=== PATIENT | male | born 1940 | race Caucasian/White ===

== ENCOUNTER 2016-09-19 04:22 | Emergency (ER) | payer BC, MEDICARE ==
[2016-09-19 05:32] LABS: Hematocrit 41 % (42-52); Hemoglobin 13.8 g/dl (14.0-18.0); Mean Corpuscular HGB Conc 34 g/dl (31-36); Mean Corpuscular Hemoglobin 29 pg (27-31); Mean Corpuscular Volume 85 fL (80-94); Mean Platelet Volume 8 um3 (7.4-10.4); Red Blood Count 4.76 10^6/ul (4.0-5.4); Red Cell Distribution Width 14 % (10.5-15)
[2016-09-19 05:37] LABS: Albumin 3.9 g/dL (3.2-5.2); BUN/Creatinine Ratio 14.6 (8-20); Calcium 9.4 mg/dL (8.6-10.3); EGFR African American 73.2 (>60); EGFR Non-African American 56.9 (>60); Globulin 2.9 g/dL (2-4); Potassium 3.8 mmol/L (3.5-5.0); Total Bilirubin 1.2 mg/dL (0.2-1.0); Total Protein 6.8 g/dL (6.4-8.9)
--- NOTE | 2016-09-19 05:51 | ED ---
Nichole Ruiz Erika, scribed for Gael Jama MD on 09/19/16 at 0457 . Hypertension - HPI Summary HPI Summary: Patient is a 76-year-old male presenting to the ED with a CC of high blood pressure. Patient reports 2 days of chills, throbbing headache, and an "odd sensation" in the posterior neck, which he associates with episodes of elevated blood pressure. Pt denies any SOB or chest pain. Pt states he took 2 HCTZ earlier to see if symptoms would improve, and that symptoms have now resolved. Pt took his blood pressure with a traveling monitor he has which stated his blood pressure was above 200 systolic, but he is unsure that this monitor was accurate because blood pressure was much lower when EMS arrived. EMS report a blood pressure of 158/78 at 04:00, and 127/80 at 04:10. Patient states his blood pressure is usually around 145/80. Pt states he last saw his PCP in June 2016 and will not be able to see him for a while. He notes concern over blood pressure spiking occasionally. 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 Onset/Duration: Started Days Ago, Atraumatic, Resolved Timing: Constant Alleviating Factor(s): Other - HCTZ Associated Signs & Symptoms: Headaches, Other: - sensation in neck, chills - Allergies/Home Medications Allergies/Adverse Reactions: Allergies Allergy/AdvReac Type Severity Reaction Status Date / Time Omeprazole [From Prilosec] AdvReac See Comment Verified 09/19/16 04:28 Home Medications: Home Medications Atenolol TAB* 25 mg PO DAILY 09/19/16 [History Confirmed 09/19/16] Finasteride TAB* [Proscar TAB*] 5 mg PO DAILY 09/19/16 [History Confirmed ] Hydrochlorothiazide 12.5 mg PO DAILY 09/19/16 [History Confirmed 09/19/16] Levothyroxine TAB* 50 mcg PO DAILY 09/19/16 [History Confirmed 09/19/16] Nizatidine 150 mg PO BEDTIME 09/19/16 [History Confirmed 09/19/16] Terazosin CAP* [Hytrin CAP 5 MG*] 5 mg PO BEDTIME 09/19/16 [History Confirmed ] PMH/Surg Hx/FS Hx/Imm Hx Cardiovascular History: Reports: Hx Hypertension - Surgical History Surgery Procedure, Year, and Place: Tonsillectomy age 5 Infectious Disease History: Denies: Traveled Outside the [place] in Last 30 Days - Family History Known Family History: Positive: Cardiac Disease, Hypertension Negative: Diabetes - Social History Occupation: Retired Lives: With Family Alcohol Use: Occasionally Hx Substance Use: No Substance Use Type: Reports: None Hx Tobacco Use: No Smoking Status (MU): Never Smoked Tobacco Review of Systems Positive: Chills Negative: Chest Pain Negative: Shortness Of Breath Positive: Headache, Paresthesia - posterior neck All Other Systems Reviewed And Are Negative: Yes Physical Exam Triage Information Reviewed: Yes Vital Signs On Initial Exam: Initial Vitals Temp Pulse Resp BP Pulse Ox 97.8 F 50 10 157/78 99 09/19/16 04:25 09/19/16 04:25 09/19/16 04:25 09/19/16 04:25 09/19/16 04:25 Vital Signs Reviewed: Yes Appearance: Positive: Well-Appearing, No Pain Distress Skin: Positive: Warm Head/Face: Positive: Normal Head/Face Inspection Eyes: Positive: FENG ENT: Positive: Hearing grossly normal Neck: Positive: Supple Respiratory/Lung Sounds: Positive: Breath Sounds Present Cardiovascular: Positive: RRR Abdomen Description: Positive: Nontender, Soft Bowel Sounds: Positive: Present Musculoskeletal: Positive: Strength/ROM Intact Neurological: Positive: Alert, Oriented to Person Place, Time Psychiatric: Positive: Affect/Mood Appropriate - [place] Coma Scale Coma Scale Total: 15 Diagnostics - Vital Signs Vital Signs Temp Pulse Resp BP Pulse Ox 09/19/16 04:30 51 16 149/75 97 09/19/16 04:29 51 17 98 09/19/16 04:27 168/73 09/19/16 04:25 97.8 F 50 10 157/78 99 - Laboratory Lab Results: Lab Results 09/19/16 09/19/16 Range/Units 04:59 04:59 WBC 7.0 (3.5-10.8) 10^3/ul RBC 4.76 (4.0-5.4) 10^6/ul Hgb 13.8 L (14.0-18.0) g/dl Hct 41 L (42-52) % MCV 85 (80-94) fL MCH 29 (27-31) pg MCHC 34 (31-36) g/dl RDW 14 (10.5-15) % Plt Count 163 (150-450) 10^3/ul MPV 8 (7.4-10.4) um3 Neut % (Auto) 57.9 (38-83) % Lymph % (Auto) 22.2 L (25-47) % [place] % (Auto) 13.4 H (1-9) % Eos % (Auto) 5.3 (0-6) % Baso % (Auto) 1.2 (0-2) % Absolute Neuts (auto) 4.0 (1.5-7.7) 10^3/ul Absolute Lymphs (auto) 1.5 (1.0-4.8) 10^3/ul Absolute Monos (auto) 0.9 H (0-0.8) 10^3/ul Absolute Eos (auto) 0.4 (0-0.6) 10^3/ul Absolute Basos (auto) 0.1 (0-0.2) 10^3/ul Absolute Nucleated RBC 0.01 10^3/ul Nucleated RBC % 0.1 Sodium 138 (133-145) mmol/L Potassium 3.8 (3.5-5.0) mmol/L Chloride 105 (101-111) mmol/L Carbon Dioxide 25 (22-32) mmol/L Anion Gap 8 (2-11) mmol/L BUN 18 (6-24) mg/dL Creatinine 1.23 H (0.67-1.17) mg/dL Est GFR ( Amer) 73.2 (>60) Est GFR (Non-Af Amer) 56.9 (>60) BUN/Creatinine Ratio 14.6 (8-20) Glucose 107 H (70-100) mg/dL Calcium 9.4 (8.6-10.3) mg/dL Total Bilirubin 1.20 H (0.2-1.0) mg/dL AST 19 (13-39) U/L ALT 15 (7-52) U/L Alkaline Phosphatase 58 (34-104) U/L Total Protein 6.8 (6.4-8.9) g/dL Albumin 3.9 (3.2-5.2) g/dL Globulin 2.9 (2-4) g/dL Albumin/Globulin Ratio 1.3 (1-3) Result Diagrams: 09/19/16 04:59 09/19/16 04:59 Lab Statement: Any lab studies that have been ordered have been reviewed, and results considered in the medical decision making process. - EKG 04:28 Cardiac Rate: Bradycardia - at 51 bpm EKG Rhythm: Sinus Bradycardia Re-Evaluation - Re-Evaluation First Eval Change: Improved Hypertension Course/Dx - Course Assessment/Plan: Pt is a 76 y/o M presenting to the ED with a CC of high blood pressure. In the ED, pt's blood pressure is 157/78 initially. Blood work drawn. EKG shows sinus bradycardia. Patient is observed, and his blood pressure remains WNL. Patient is discharged home and is recommended to follow up with a PCP regarding his blood pressure. - Diagnoses Provider Diagnoses: HTN (hypertension) Discharge - Discharge Plan Condition: Stable Disposition: HOME Patient Education Materials: Hypertension (ED) Referrals: [facility] [place] [facility]IAN REFERRAL [Outside] - 2 Days Additional Instructions: Please use our physician referral service to find a PCP and follow up. The documentation as recorded by the Nichole banks Erika accurately reflects the service I personally performed and the decisions made by , Gael Jama MD.
[2016-09-19 06:19] VITALS: BP 148/75
== END 2016-09-19 06:19 | disposition home or self-care (01) ==
LOC: ED 04:22
DX: I10 Essential (primary) hypertension (principal)
CPT/HCPCS: 36415; 80053; 85025; 93005; 99282